=== PATIENT | male | born 1975 | race Caucasian/White ===

== ENCOUNTER 2018-12-10 09:56 | Emergency (ER) | payer OTHER ==
[~2018-12-10] VITALS: Ht 182.9 cm; Wt 104.3 kg
--- NOTE | 2018-12-10 10:17 | NUR ---
dr shepard at bedside for eval.
[2018-12-10] MEDS ORDERED: IPRATROPIUM NEB FS 0.5 MG/2.5 ML AMPUL.NEB NEB ONE (10:30)
[2018-12-10] MEDS ORDERED: ALBUTEROL FS 2.5 MG/3 ML VIAL.NEB NEB ONE (10:30)
[2018-12-10] MEDS ORDERED: IPRATROPIUM NEB FS 0.5 MG/2.5 ML AMPUL.NEB ONE (10:35)
[2018-12-10] MEDS ORDERED: ALBUTEROL FS 2.5 MG/3 ML VIAL.NEB ONE (10:35)
--- NOTE | 2018-12-10 10:36 | NUR ---
Dawn early in [facility] - 12/10/18 at 1048 by RAHDA rt at [facility] for eval.
--- NOTE | 2018-12-10 10:36 | NUR ---
rt at bedside for breathing treatment.
--- NOTE | 2018-12-10 11:16 | NUR ---
radiology at bedside for chest xray.
[2018-12-10] MEDS ORDERED: ACETAMINOPHEN ES 500 MG TABLET PO ONE (11:30)
[2018-12-10] MEDS ORDERED: ACETAMINOPHEN ES 500 MG TABLET ONE (11:34)
[2018-12-10] MEDS ORDERED: AZITHROMYCIN 250 MG TABLET ONE (11:51)
[2018-12-10] MEDS ORDERED: AZITHROMYCIN 250 MG TABLET PO ONE (12:00)
--- NOTE | 2018-12-10 12:04 | NUR ---
Patient discharged to home in stable condition. Written and verbal after care instructions given. Patient verbalizes understanding of instruction.
[2018-12-10 12:06] VITALS: BP 128/92
== END 2018-12-10 12:07 | disposition home or self-care (01) ==
LOC: ER 09:56
DX: J18.1 Lobar pneumonia, unspecified organism (principal); F10.10 Alcohol abuse, uncomplicated; Y90.9 Presence of alcohol in blood, level not specified
CPT/HCPCS: 71045-TC